=== PATIENT | female | born 2000 | race Caucasian/White ===

== ENCOUNTER 2020-05-08 04:53 | Emergency (ER) | payer SELFPAY ==
[~2020-05-08] VITALS: Ht 173 cm; Wt 72.5 kg
[2020-05-08 05:24] LABS: BILIRUBIN,URINE NEGATIVE (NEGATIVE); CLARITY,URINE SL CLOUDY; COLOR,URINE YELLOW; GLUCOSE, URINE (UA) NEGATIVE (NEGATIVE); KETONES,URINE NEGATIVE (NEGATIVE); LEUKOCYTE ESTERASE ,URINE NEGATIVE (NEGATIVE); NITRITE,URINE NEGATIVE (NEGATIVE); PROTEIN,URINE NEGATIVE (NEGATIVE)
[2020-05-08 05:30] LABS: BACTERIA,URINE NEGATIVE /HPF
--- NOTE | 2020-05-08 05:37 | ED Abdominal Pain ---
General Chief Complaint: Abdominal/GI Problems Stated Complaint: ABD PAIN Nursing Triage Note: Pt arrival to ER via [facility] with complaint of abdominal pain. Pt states that she was asleep and about 2 hours ago pt woke up to abdominal pain. Pt states that at worst it was 9/10 but pain is at a 2/10 on arrival. Pt states that menstrual cycle ended 3 weeks ago. Pt denies n/v. Pt states that she has had normal urine output and normal BM's. Pt has no fever and no other complaints. Sepsis Screen: No Definite Risk Source of Information: Patient (BERENICE CHARLES DO) History of Present Illness Date Seen by Provider: May 08, 2020 Time Seen by Provider: 05:10 Initial Comments PT ARRIVES VIA EMS FROM HOME, BOYFRIEND HERE ON ARRIVAL C/O EPIGASTRIC PAIN--BEGAN A COUPLE OF HOURS AGO WHILE SLEEPING PAIN COMES AND GOES--NOT PRESENT NOW. NOTHING WORSENS OR IMPROVES PAIN NO RADIATION OF PAIN + NAUSEA, NO VOMITING. NO NAUSEA NOW HAD NORMAL BM LAST NIGHT NO URINARY SYMPTOMS NO FEVER/SWEATS/CHILLS HAS NOT TAKEN ANYTHING FOR PAIN ATE DINNER AROUND 1800--SALMON, BROCCOLI, TORTELLINI, AND HAD A PROTEIN/ENERGY BAR LATER LMP --3 WEEKS AGO. NORMAL. 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 STATES SHE WAS HAVING PAIN ON THE SIDES OF HER ABDOMEN IN JANUARY AND FEBRUARY AND WAS TOLD THAT IT WAS FROM STRESS NO COVID-19 SYMPTOMS OR KNOWN EXPOSURE PT IS [employer] STUD[employer] FROM [place], [place] (BERENICE CHARLES DO) Allergies and Home Medications Allergies Coded Allergies: No Known Drug Allergies (Unverified , 05/08/20) Home Medications Ondansetron 4 Mg Tab.rapdis, 4 MG PO Q8H PRN for nausea and vomiting Prescribed by: MAO ANDERSON on 05/08/20 2923 Patient Home Medication List Home Medication List Reviewed: Yes (MAO ANDERSON MD) Review of Systems Review of Systems Constitutional: no symptoms reported; No chills, No diaphoresis, No dizziness, No fever, No malaise, No weakness EENTM: No Symptoms Reported Respiratory: No Symptoms Reported Cardiovascular: No Symptoms Reported Gastrointestinal: See HPI, Abdominal Pain; Denies Constipated, Denies Diarrhea; Nausea; Denies Poor Appetite, Denies Poor Fluid Intake, Denies Vomiting Genitourinary: No Symptoms Reported Musculoskeletal: no symptoms reported; No back pain Skin: no symptoms reported Psychiatric/Neurological: No Symptoms Reported Endocrine: No Symptoms Reported Hematologic/Lymphatic: No Symptoms Reported (BERENICE CHARLES DO) Past Twtpquk-Sulmgw-Ssqzdl Hx Past Med/Social Hx: Reviewed and Corrections made (BERENICE CHARLES DO) Patient Social History Alcohol Use: Occasionally Uses Drug of Choice: DENIES Smoking Status: Never a Smoker Recent Infectious Disease Expo: No (BERENICE CHARLES DO) Past Medical History Surgeries: Yes (BMT'S AND EAR DRUM SURGERY) Ear Surgery Respiratory: No Cardiac: No Neurological: Yes (DAILY HEADACHES, PER PT-DOES NOT TAKE ANYTHING FOR THEM) Headaches /Migraines : No Last Menstrual Period: Apr 12, 2020 Reproductive Disorders: No Genitourinary: No Gastrointestinal: No Musculoskeletal: No Endocrine: No HEENT: Yes (BMT'S AND EAR DRUM SURGERY CHILD) Chronic Ear Infection Cancer: No Psychosocial: Yes ("STRESS" ) Anxiety Integumentary: No Blood Disorders: No (BERENICE CHARLES DO) Physical Exam Vital Signs Vital Signs - First Documented 05/08/20 04:55 Temp 36.5 Pulse 78 Resp 18 B/P (MAP) 140/86 (104) Pulse Ox 99 O2 Delivery Room Air (MAO ANDERSON MD) Vital Signs Capillary Refill : Less Than 3 Seconds (BERENICE CHARLES DO) Height/Weight/BMI Height: '" Weight: lbs. oz. kg; 24.00 BMI Method: General Appearance: WD/WN, no apparent distress, other (KEEPS EYES CLOSED) Neck: normal inspection Respiratory: normal breath sounds, no respiratory distress, no accessory muscle use Cardiovascular: regular rate, rhythm, no murmur Gastrointestinal: normal bowel sounds, soft, no organomegaly, no pulsatile mass; No distended, No guarding, No rebound; tenderness (EPIGASTRIC AND SUPRAPUBIC TENDNERNESS); No hernia, No mass Extremities: normal inspection, normal capillary refill Back: normal inspection, no CVA tenderness Skin: normal color, warm/dry; No rash (BERENICE CHARLES DO) Progress/Results/Core Measures Results/Orders Lab Results Laboratory Tests Test 05/08/20 04:45 3/29/21 05:00 05/08/20 05:05 05/08/20 05:32 Range/Units Urine Opiates Screen NEGATIVE NEGATIVE Urine Oxycodone Screen NEGATIVE NEGATIVE Urine Methadone Screen NEGATIVE NEGATIVE Urine Propoxyphene Screen NEGATIVE NEGATIVE Urine Barbiturates Screen NEGATIVE NEGATIVE Ur Tricyclic Antidepressants Screen NEGATIVE NEGATIVE Urine Phencyclidine Screen NEGATIVE NEGATIVE Urine Amphetamines Screen NEGATIVE NEGATIVE Urine Methamphetamines Screen NEGATIVE NEGATIVE Urine Benzodiazepines Screen NEGATIVE NEGATIVE Urine Cocaine Screen NEGATIVE NEGATIVE Urine Cannabinoids Screen NEGATIVE NEGATIVE White Blood Count 5.8 4.3-11.0 10^3/uL Red Blood Count 4.44 3.80-5.11 10^6/uL Hemoglobin 11.6 11.5-16.0 g/dL Hematocrit 36 35-52 % Mean Corpuscular Volume 82 80-99 fL Mean Corpuscular Hemoglobin 26 25-34 pg Mean Corpuscular Hemoglobin Concent 32 32-36 g/dL Red Cell Distribution Width 14.6 H 10.0-14.5 % Platelet Count 239 130-400 10^3/uL Mean Platelet Volume 9.8 9.0-12.2 fL Immature Granulocyte % (Auto) 0 % Neutrophils (%) (Auto) 36 L 42-75 % Lymphocytes (%) (Auto) 53 H 12-44 % Monocytes (%) (Auto) 11 0-12 % Eosinophils (%) (Auto) 1 0-10 % Basophils (%) (Auto) 0 0-10 % Neutrophils # (Auto) 2.1 1.8-7.8 10^3/uL Lymphocytes # (Auto) 3.1 1.0-4.0 10^3/uL Monocytes # (Auto) 0.6 0.0-1.0 10^3/uL Eosinophils # (Auto) 0.0 0.0-0.3 10^3/uL Basophils # (Auto) 0.0 0.0-0.1 10^3/uL Immature Granulocyte # (Auto) 0.0 0.0-0.1 10^3/uL Neutrophils % (Manual) 38 % Lymphocytes % (Manual) 51 % Monocytes % (Manual) 5 % Band Neutrophils 2 % Reactive Lymphocytes 4 % Blood Morphology Comment NORMAL Urine Color YELLOW Urine Clarity SL CLOUDY Urine pH 7.0 5-9 Urine Specific Stella <=1.005 1.016-1.022 Urine Protein NEGATIVE NEGATIVE Urine Glucose (UA) NEGATIVE NEGATIVE Urine Ketones NEGATIVE NEGATIVE Urine Nitrite NEGATIVE NEGATIVE Urine Bilirubin NEGATIVE NEGATIVE Urine Urobilinogen 0.2 < = 1.0 MG/DL Urine Leukocyte Esterase NEGATIVE NEGATIVE Urine RBC (Auto) NEGATIVE NEGATIVE Urine RBC NONE /HPF Urine WBC NONE /HPF Urine Squamous Epithelial Cells 2-5 /HPF Urine Crystals NONE /LPF Urine Bacteria NEGATIVE /HPF Urine Casts NONE /LPF Urine Mucus NEGATIVE /LPF Urine Culture Indicated NO Sodium Level 140 135-145 MMOL/L Potassium Level 3.7 3.6-5.0 MMOL/L Chloride Level 106 98-107 MMOL/L Carbon Dioxide Level 24 21-32 MMOL/L Anion Gap 10 5-14 MMOL/L Blood Urea Nitrogen 11 7-18 MG/DL Creatinine 0.77 0.60-1.30 MG/DL Estimat Glomerular Filtration Rate > 60 BUN/Creatinine Ratio 14 Glucose Level 85 70-105 MG/DL Calcium Level 8.7 8.5-10.1 MG/DL Corrected Calcium 8.7 8.5-10.1 MG/DL Total Bilirubin 0.6 0.1-1.0 MG/DL Aspartate Amino Transf (AST/SGOT) 27 5-34 U/L Alanine Aminotransferase (ALT/SGPT) 35 0-55 U/L Alkaline Phosphatase 61 40-136 U/L Total Protein 6.9 6.4-8.2 GM/DL Albumin 4.0 3.2-4.5 GM/DL Amylase Level 42 25-125 U/L Lipase 22 8-78 U/L Serum Alcohol < 10 <10 MG/DL (MAO ANDERSON MD) Medications Given in ED Current Medications Medications Dose Ordered Sig/Elaine Route Start Time Stop Time Status Last Admin Dose Admin Iohexol 100 ml ONCE ONCE IV 05/08/20 06:00 05/08/20 06:04 DC 05/08/20 06:00 91 ML Sodium Chloride 100 ml ONCE ONCE IV 05/08/20 06:00 05/08/20 06:04 DC 05/08/20 06:00 80 ML (MAO ANDERSON MD) Vital Signs/I&O 05/08/20 05/08/20 04:55 06:56 Temp 36.5 Pulse 78 74 Resp 18 16 B/P (MAP) 140/86 (104) 128/64 Pulse Ox 99 99 O2 Delivery Room Air Room Air (MAO ANDERSON MD) Blood Pressure Mean: 104 Progress Progress Note : Progress Note 0600--CARE TURNED OVER TO DR. ANDERSON, ALL STUDIES PENDING (BERENICE CHARLES DO) Progress Note : Time: 06:39 Progress Note Care assumed from DR Charles at shift change. CT returns unremarkable, without any significant pathology noted. She does have a 1.9cm left corpus luteum cyst with mild free fluid in the pelvs. Rates her discomfort now at about a "3". Feeling better. No clinical or objective findings at this point to warrant further work-up. VSS. labs WNL. PAtient will be sent home with nausea medications and instructions to return if her pain comes back or she develops any new or concerning symptoms, Tylenol and Ibuprofen as needed for pain, She verbalizes understnading and agreement with the discharge plan. All questions are sought and answered. Patient will be referred to [facility]. (MAO ANDERSON MD) Diagnostic Imaging Diagonstic Imaging: CT Plain Films/CT/US/NM/MRI: abdomen Comments CT Abd/Pelvis: normal appendix. Left sided corpus luteum cyst yessi mild free fluid. Otherwise unremarkable Reviewed: Reviewed by Me (MAO ANDERSON MD) Departure Impression Primary Impression: Abdominal pain Qualified Codes: R10.84 - Generalized abdominal pain Disposition: 01 HOME, SELF-CARE Condition: Stable Departure-Patient Inst. Decision time for Depature: 06:44 (MAO ANDERSON MD) Referrals: NO,LOCAL PHYSICIAN (PCP) Primary Care Physician [facility] [place] Patient Instructions: Severe Abdominal Pain, Adult (DC) Add. Discharge Instructions: Drink plenty of fluids to stay well-hydrated. Follow a clear liquid diet for the next 12 hours or so and then slowly advance your diet as tolerated. You can take [id number] Tylenol or ibuprofen as needed for pain. I have sent you a prescription for Zofran which is nausea medication. Take this 1 every 6-8 hours as needed for nausea. If you develop a recurrence of your abdominal pain especially with nausea vomiting, fever or any other emergent concerns please come back to the emergency department for reevaluation. Scripts Ondansetron (Ondansetron Odt) 4 Mg Tab.rapdis 4 MG PO Q8H PRN for nausea and vomiting, #20 TAB Prov: MAO ANDERSON MD 05/08/20 BERENICE CHARLES DO May 08, 2020 05:37 MAO ANDERSON MD May 08, 2020 06:44
[2020-05-08 05:42] LABS: BASOPHILS % (AUTO) 0 % (0-10); EOSINOPHILS % (AUTO) 1 % (0-10); HEMATOCRIT 36 % (35-52); HEMOGLOBIN 11.6 g/dL (11.5-16.0); LYMPHOCYTES # (AUTO) 3.1 10^3/uL (1.0-4.0); LYMPHOCYTES % (AUTO) 53 % (12-44); MEAN CORPUSCULAR HEMOGLOBIN 26 pg (25-34); MEAN CORPUSCULAR HGB CONC 32 g/dL (32-36); MEAN CORPUSCULAR VOLUME 82 fL (80-99); MEAN PLATELET VOLUME 9.8 fL (9.0-12.2); MONOCYTES # (AUTO) 0.6 10^3/uL (0.0-1.0); MONOCYTES % (AUTO) 11 % (0-12); NEUTROPHILS # (AUTO) 2.1 10^3/uL (1.8-7.8); NEUTROPHILS % (AUTO) 36 % (42-75); PLATELET COUNT 239 10^3/uL (130-400); WHITE BLOOD COUNT 5.8 10^3/uL (4.3-11.0)
[2020-05-08 05:43] LABS: CHLORIDE 106 MMOL/L (98-107); POTASSIUM 3.7 MMOL/L (3.6-5.0); SODIUM 140 MMOL/L (135-145)
[2020-05-08 05:44] LABS: AMYLASE 42 U/L (25-125); CALCIUM 8.7 MG/DL (8.5-10.1)
[2020-05-08 05:45] LABS: GLUCOSE 85 MG/DL (70-105); TOTAL PROTEIN 6.9 GM/DL (6.4-8.2)
[2020-05-08 05:46] LABS: CARBON DIOXIDE 24 MMOL/L (21-32)
[2020-05-08 05:47] LABS: BILIRUBIN,TOTAL 0.6 MG/DL (0.1-1.0)
[2020-05-08 05:49] LABS: ALKALINE PHOSPHATASE 61 U/L (40-136); CREATININE SERUM 0.77 MG/DL (0.60-1.30); GFR ESTIMATED > 60
[2020-05-08 05:50] LABS: BUN/CREATININE RATIO 14
[2020-05-08 05:52] LABS: ALANINE AMINOTRANSFERASE 35 U/L (0-55); LIPASE 22 U/L (8-78)
[2020-05-08 05:55] LABS: AMPHETAMINE SCREEN, URINE NEGATIVE (NEGATIVE); BENZODIAZEPINES SCREEN URINE NEGATIVE (NEGATIVE); CANNABINOID SCREEN, URINE NEGATIVE (NEGATIVE); COCAINE SCREEN URINE NEGATIVE (NEGATIVE); METHAMPHETAMINE SCREEN URINE S NEGATIVE (NEGATIVE)
[2020-05-08 05:56] LABS: BARBITURATE SCREEN URINE NEGATIVE (NEGATIVE); METHADONE STAT NEGATIVE (NEGATIVE); OPIATE SCREEN URINE NEGATIVE (NEGATIVE); OXYCODONE STAT NEGATIVE (NEGATIVE); PROPOXYPHENE STAT NEGATIVE (NEGATIVE); TRICYCLIC ANTIDEPRESSANTS SCRE NEGATIVE (NEGATIVE)
[2020-05-08] MEDS ORDERED: IOHEXOL 350 MG/ML 100 ML (OMNIPAQUE 350) VIAL IV ONE (06:00)
[2020-05-08] MEDS ORDERED: HOLD METFORMIN - RECEIVED CONTRAST 20 ML VIAL IV SCH (06:00)
[2020-05-08] MEDS ORDERED: NS 100 ML (IVPB) BAG IV ONE (06:00)
[2020-05-08 06:19] LABS: BAND NEUTROPHILS 2 %; LYMPHOCYTES % (MANUAL) 51 %; MONOCYTES % (MANUAL) 5 %; NEUTROPHILS % (MANUAL) 38 %; RBC MORPH NORMAL; REACTIVE LYMPHOCYTES 4 %
[2020-05-08] MEDS ORDERED: ONDA4TAB11 PO (06:47)
[2020-05-08 06:56] VITALS: BP 128/64
--- NOTE | 2020-05-08 09:33 | Diagnostic Imaging Report ---
PROCEDURE: CT abdomen and pelvis with contrast, rule out appendicitis. TECHNIQUE: Multiple contiguous axial images were obtained through the abdomen and pelvis after the administration of intravenous contrast. All CT scans use one or more of the following dose optimizing techniques: automated exposure control, MA and/or KvP adjustment based on patient size and exam type or iterative reconstruction. INDICATION: Right lower quadrant pain Liver, gallbladder, bile ducts, spleen, adrenals, pancreas all appeared nonacute. The aorta is patent and nonaneurysmal. The urinary tracts unobstructed. There is small pelvic free fluid in the cul-de-sac likely physiologic in a female patient of this age. Urinary bladder not well distended likely accounting for its mild wall thickening. There are no findings of acute appendicitis. No focal inflammatory process. No pneumatosis or free gas. Stomach is nondilated. No evidence for ileus. IMPRESSION: 1. No obstructive features, inflammatory process or acute abnormality. Small volume pelvic free fluid likely physiologic. 2. Mild thickening of the urinary bladder paez may merely reflect its lack of distention, however, cystitis in the appropriate scenario could not be excluded. Dictated by: Dictated on workstation # [id number]
== END 2020-05-08 06:57 | disposition home or self-care (01) ==
LOC: ER 04:55
DX: N83.12 Corpus luteum cyst of left ovary (principal)
CPT/HCPCS: 74177; 80053; 80306; 81000; 82150; 83690; 84703; 85007; 85027; 99283; G0480; 36415; 80320